=== PATIENT | female | born 1980 | race Caucasian/White ===

== ENCOUNTER 2021-07-20 12:14 | Emergency (ER) | payer BC, SELFPAY ==
[2021-07-20] MEDS ORDERED: Acetaminophen 500 MG TAB ONE (12:38)
[2021-07-20 12:56] LABS: Bilirubin Small (Negative); Blood, Urine Large (Negative); Clarity Cloudy (Clear); Glucose, Urine (Dipstick) Negative (Negative); Ketone, Urine Trace mg/dL (Negative); Leukocyte Negative (Negative); Nitrite Negative (Negative); Protein, Urine (Dipstick) 100 mg/dL (Neg-Trace); Urobilinogen 0.2 mg/dL (Less than 2); pH, Urine 5.5 (5.0-9.0)
[2021-07-20 12:58] LABS: Specific Gravity, Urine 1.027 (1.002-1.036)
[2021-07-20 13:06] LABS: Bacteria/HPF 1+ HPF (None Seen); Mucous/LPF 3+ LPF (<2+); WBC/HPF 21-50 HPF (0-3)
[2021-07-20] MEDS ORDERED: cefTRIAXone\\ROCEPHIN 1 GM VIAL ONE (13:34)
[2021-07-20] MEDS ORDERED: Ciprofloxacin 500 MG TAB ONE (13:34)
[2021-07-20] MEDS ORDERED: Lidocaine 1% (PF) 30 ML VIAL ONE (13:34)
[2021-07-20] MEDS ORDERED: Lidocaine 1% PF 5 ML VIAL ONE (13:35)
[2021-07-20 21:26] LABS: SARS-CoV-2 PCR by NAA DETECTED (NotDetected)
== END 2021-07-20 14:00 | disposition home or self-care (01) ==
LOC: MADERS 12:14
DX: U07.1 COVID-19 (principal); N10 Acute pyelonephritis; Z87.891 Personal history of nicotine dependence
CPT/HCPCS: 71045; 81003; 81015; 87086; 87804; 96372; J0696; J2001; U0003; U0005